=== PATIENT | male | born 1945 | race Caucasian/White ===

== ENCOUNTER 2020-03-03 13:15 | Outpatient (CLI) | payer MEDICARE, OTHER, SELFPAY ==
--- NOTE | 2020-03-03 13:38 | XR_ITS ---
WS: [id number] ABDOMEN 1 VIEW(S) HISTORY: GASTRITIS, ABDOMINAL PAIN, LUQ COMPARISON: None available. Moderate fecal retention and constipation. No obstruction. No suspicious calcifications or masses. 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 XR/XR abdomen 1V* [id number] IMPRESSION: Moderate constipation.
== END 2020-03-03 13:16 | disposition home or self-care (01) ==
LOC: RADWPI 13:19
PROVIDERS: Family Provider Electrodiagnostic Medicine; PCP Electrodiagnostic Medicine; Visit Provider Electrodiagnostic Medicine
DX: K29.70 Gastritis, unspecified, without bleeding (principal); R10.12 Left upper quadrant pain; K59.00 Constipation, unspecified
CPT/HCPCS: 74018

== ENCOUNTER 2020-03-07 11:07 | Outpatient (CLI) | payer MEDICARE, OTHER, SELFPAY ==
--- NOTE | 2020-03-07 11:12 | CT_ITS ---
WS: [id number] CT ABDOMEN PELVIS TECHNIQUE: Contrast-enhanced CT of the abdomen and pelvis with coronal and sagittal reformatted image s. CLINICAL INFORMATION: DIARRHEA, ABDOMINAL PAIN COMPARISON: None. DLP: 1083.[address] scans at [facility] use at least one of these dose optimization techniques: automat ed exposure control; mA and/or kV adjustment per patient size (includes targeted exams where dose is matched to clinical indication); or iterative reconstruction. FINDINGS: Mild diffuse fatty infiltration of the liver. Normal portal vein and splenic vein. Tiny cyst right he patic lobe. Normal GE junction. Normal spleen. Gallbladder appears contracted but otherwise unremarka ble in appearance. Lung bases are well aerated. Adrenal glands are normal. Normal renal parenchymal e nhancement. No hydronephrosis. Peripelvic renal cysts. Pancreas appears unremarkable. Normal caliber abdominal aorta. Mild aortic calcification. No periaort ic lymphadenopathy. No pelvic lymphadenopathy. No inguinal lymphadenopathy. Sigmoid diverticulosis. No evidence of acute diverticulitis. Scattered stool in the colon. No evidenc e of small or large bowel obstruction. Tiny fat-containing umbilical hernia. Heterogeneous enlarged prostate measuring 4.3 x 4.9 x 4.6 cm. Disc space narrowing worse L5-S1. CT/CT abdomen pelvis w con* [id number] IMPRESSION: 1. Mild diffuse fatty infiltration of the liver. 2. Bilateral peripelvic renal cysts. No hydronephrosis. Normal portal vein and splenic vein. 3. Enlarged heterogeneously enhancing prostate measuring 4.9 x 4.3 x 4.6 cm. R ecommend correlation PSA. 4. Small esophageal hiatal hernia. 5. Normal caliber abdominal aorta.
[2020-03-07] MEDS: iohexol 300 mg/mL 50 mL Btl PO (12:49)
[2020-03-07 13:00] LABS: Blood Urea Nitrogen 11 mg/dL (8-23)
[2020-03-07] MEDS: iohexol 300 mg/mL 100 mL Btl IV (13:10)
== END 2020-03-07 11:08 | disposition home or self-care (01) ==
LOC: RADWPI 11:12
PROVIDERS: Family Provider Electrodiagnostic Medicine; PCP Electrodiagnostic Medicine; Visit Provider Electrodiagnostic Medicine
DX: R19.7 Diarrhea, unspecified (principal); R10.9 Unspecified abdominal pain; K76.0 Fatty (change of) liver, not elsewhere classified; N28.1 Cyst of kidney, acquired; N40.0 Benign prostatic hyperplasia without lower urinary tract symptoms; K44.9 Diaphragmatic hernia without obstruction or gangrene
CPT/HCPCS: 74177; 82565; 84520; Q9967

== ENCOUNTER → 2020-06-05 13:03 | Outpatient (BNVA) | payer MEDICARE, OTHER, SELFPAY | PROVIDERS: Family Provider Electrodiagnostic Medicine; PCP Electrodiagnostic Medicine; Visit Provider Dermatology | DX: L57.0 Actinic keratosis (principal); L82.1 Other seborrheic keratosis | CPT/HCPCS: 17000; 17003; 99203 ==

== ENCOUNTER → 2020-07-02 11:21 | Outpatient (BNVA) | payer MEDICARE, OTHER, SELFPAY | PROVIDERS: Family Provider Electrodiagnostic Medicine; PCP Electrodiagnostic Medicine; Visit Provider Urology | DX: R31.9 Hematuria, unspecified (principal); N40.0 Benign prostatic hyperplasia without lower urinary tract symptoms | CPT/HCPCS: 81001 ==

== ENCOUNTER → 2020-07-03 08:00 | Outpatient (BNVA) | payer MEDICARE, OTHER, SELFPAY | PROVIDERS: Family Provider Electrodiagnostic Medicine; PCP Electrodiagnostic Medicine; Visit Provider Urology | DX: R31.9 Hematuria, unspecified (principal) | CPT/HCPCS: 88112 ==

== ENCOUNTER 2020-09-30 07:50 | Outpatient (CLI) | payer MEDICARE, OTHER, SELFPAY ==
--- NOTE | 2020-09-30 08:04 | CT_ITS ---
WS: [id number] CT NECK WITH CONTRAST HISTORY: CERVICAL LYMPHADENOPATHY, NECK MASS TECHNIQUE: Contiguous 5 mm axial images are performed through the neck with intravenous contrast. Sag ittal and coronal reformats are also submitted. All CT scans at [facility] use at least o ne of these dose optimization techniques: automated exposure control; mA and/or kV adjustment per pat ient size (includes targeted exams where dose is matched to clinical indication); or iterative recons truction. CONTRAST: CONTRAST: Omnipaque 300; 95 mL IV. DLP: 2547.43 mGycm COMPARISON: None available. Palpable nodule in the LEFT submandibular region is identified. At the palpable site there is an enla rged, mildly hyperemic level 1B lymph node with a maximum short axis diameter of 13 mm. Smaller lymph nodes which are subcentimeter level 1A and 1B on the RIGHT. Additional mildly rounded but subcentime ter 8 mm LEFT level 3 lymph node. There is mild asymmetry in the LEFT palatine tonsil with diffuse calcifications. This is asymmetric t o the RIGHT with more soft tissue thickening measuring 13 x 15 mm. Vocal cords and larynx are unremar kable. Thyroid gland and salivary glands are normally enhancing with no masses. Mild degenerative disc disease at C5-6 and C6-7. No osseous destruction. Visualized portions of the skull base demonstrate no abnormalities. Orbits and globes are within norm al limits. No soft tissue masses. Visualized paranasal sinuses and mastoid air cells are normal. Lung apices are clear. CT/CT neck w con* [id number] IMPRESSION: 1. Palpable area LEFT neck corresponds to an enlarged hyperemic and possible p athologic lymph node at level 1B measuring 13 mm in diameter. Additional subcen timeter level 1 lymph nodes and a LEFT level 3 lymph node. Level 3 lymph node i s subcentimeter but rounded and mildly hyperemic. These lymph nodes may be reac tive or pathologic. 2. Fullness in the LEFT palatine tonsil. Recommend direct visualization to exc lude neoplasm.
[2020-09-30 08:27] LABS: Blood Urea Nitrogen 11 mg/dL (8-23)
[2020-09-30] MEDS: iohexol 300 mg/mL 100 mL Btl IV (08:38)
== END 2020-09-30 07:51 | disposition home or self-care (01) ==
LOC: RADWPI 07:54
PROVIDERS: PCP Electrodiagnostic Medicine; Visit Provider Electrodiagnostic Medicine
DX: R22.1 Localized swelling, mass and lump, neck (principal)
CPT/HCPCS: 70491; 82565; 84520; Q9967

== ENCOUNTER → 2020-10-02 08:23 | Outpatient (BNVA) | payer MEDICARE, OTHER, SELFPAY | PROVIDERS: PCP Electrodiagnostic Medicine; Visit Provider Urology | DX: R79.89 Other specified abnormal findings of blood chemistry (principal); N32.9 Bladder disorder, unspecified; R31.9 Hematuria, unspecified | CPT/HCPCS: 81003; 84403 ==

== ENCOUNTER → 2020-10-07 08:39 | Outpatient (BNVA) | payer MEDICARE, OTHER, SELFPAY | PROVIDERS: PCP Electrodiagnostic Medicine; Visit Provider Urology | DX: R79.89 Other specified abnormal findings of blood chemistry (principal) | CPT/HCPCS: 84403 ==

== ENCOUNTER 2020-10-17 16:19 | Outpatient (CLI) | payer MEDICARE, OTHER, SELFPAY ==
[2020-10-17 16:57] LABS: Basophils # 0.1 10^3/uL (0.0-0.1); Eosinophils # 0.1 10^3/uL (0.0-0.8); Eosinophils % 1.1 %; Hematocrit 44.6 % (42.0-52.0); Hemoglobin 14.5 g/dL (11.7-16.6); Lymphocytes # 2.8 10^3/uL (0.8-4.8); Lymphocytes % 40.2 %; Mean Corpuscular HGB Conc 32.5 g/dL (30.0-36.0); Mean Corpuscular Hemoglobin 31.1 pg (28.0-34.0); Mean Corpuscular Volume 95.7 fL (80-94); Mean Platelet Volume 9.8 fL (7.4-10.4); Monocytes # 0.8 10^3/uL (0.2-0.9); Monocytes % 11.3 %; Neutrophils # 3.22 10^3/uL (1.8-7.7); Neutrophils % 45.7 %; Nucleated Red Blood Cells % 0 %; Platelet Count 286 10^3/cmm (130-400); Red Blood Count 4.66 10^6/uL (4.1-5.3); Red Cell Distribution Width 12.8 % (12.1-15.1); White Blood Count 7.1 10^3/uL (4.0-10.0)
[2020-10-17 17:17] LABS: Anion Gap 13.4 (5-19); Blood Urea Nitrogen 12 mg/dL (8-23); Calcium 9.5 mg/dL (8.5-10.5); Carbon Dioxide 28 mmol/L (22-29); Chloride 101 mmol/L (98-107); Glucose 91 mg/dL (65-115); Osmolality Calculated 285 mOsm/kg (285-295); Potassium 4.4 mmol/L (3.5-5.1); Sodium 138 mmol/L (136-145)
== END 2020-10-17 16:20 | disposition home or self-care (01) ==
PROVIDERS: PCP Electrodiagnostic Medicine; Visit Provider Specialist
DX: R22.1 Localized swelling, mass and lump, neck (principal)
CPT/HCPCS: 36415; 80048; 85025

== ENCOUNTER → 2020-10-22 00:01 | Outpatient (BNVA) | payer MEDICARE, OTHER, SELFPAY | PROVIDERS: PCP Electrodiagnostic Medicine; Visit Provider Specialist | DX: Z20.828 Contact with and (suspected) exposure to other viral communicable diseases (principal) | CPT/HCPCS: 87635 ==

== ENCOUNTER 2020-10-28 05:53 | Day surgery (SDC) | payer MEDICARE, OTHER, SELFPAY ==
--- NOTE | 2020-10-17 16:26 | ECG_ITS ---
[facility] Test Date: 2020-10-17 Pat Name: Segun Yuan Department: Room: Gender: Male Photographic Artist: : 1945 Requested By: Dinesh Guerrier Order Number: [id number] Michelle MD: Oscar Collazo M.D. Measurements Intervals [place] Rate: 48 P: 48 GA: 170 QRS: -10 QRSD: 164 T: 11 QT: 459 QTc: 411 Interpretive Statements SINUS BRADYCARDIA RIGHT BUNDLE BRANCH BLOCK [120+ ms QRS DURATION, UPRIGHT V1, 40+ ms S IN I/aVL/V4/V5/V6] INTERPRETATION BASED ON A DEFAULT AGE OF 40 YEARS No previous ECG available for comparison Electronically Signed On 10-17-2020 18:41:28 LINER CHECKER by Oscar Collazo M.D. [id number]
[2020-10-27 13:47] VITALS: BMI 25.0
[2020-10-28] VITALS (7 sets, daily range): BP systolic 138–176; BP diastolic 84–97; PULSE 63–114; RESP 14–18; TEMP 36.1–36.8; O2SAT 92–99
[2020-10-28] MEDS: sodium chloride 0.9% 1,000 ML 30 ML IV (06:30)
--- NOTE | 2020-10-28 06:54 | W.PM.OPSUD ---
Surgery/Procedure H&P Update DATE OF PROCEDURE: October 28, 2020 DATE H&P PERFORMED: 10/17/20 H&P UPDATE INFORMATION: I have reviewed H&P completed within last 30 days, I have examined patient prior to procedure and No changes to prior documentation PREOP DIAGNOSIS: Left neck mass, left tonsil mass PRIMARY INDICATION FOR PROCEDURE: Left neck and tonsil mass PLANNED PROCEDURE: Operation Date: 10/28/20 07:00 Proposed Procedures p Tonsillectomy 34205 R22.1(Left) - Dinesh Andrews MD s Jenn Procedure 48355 R922.1(Left) - Dinesh Andrews MD s Direct Laryngoscopy with biopsy 02705 R22.1(Left) - Dinesh Andrews MD s Excisional biopsy of left neck mass R22.1 26619(Left) - Dinesh Andrews MD
--- NOTE | 2020-10-28 07:02 | ANES.PREANE2 ---
Pre-Anesthetic Assessment Pre-Anesthetic Assessment: Height/Weight: Height 1.68 m Weight 70.307 kg Temp Pulse Resp BP Pulse Ox 98.2 F 63 18 138/84 96 10/28/20 06:10 10/28/20 06:10 10/28/20 06:10 10/28/20 06:10 10/28/20 06:10 Preop Diagnosis: Left neck mass, left tonsil mass Proposed Procedure: Operation Date: 10/28/20 07:00 Proposed Procedures p Tonsillectomy 68086 R22.1(Left) - Dinesh Andrews MD s Jenn Procedure 27713 R922.1(Left) - Dinesh Andrews MD s Direct Laryngoscopy with biopsy 93460 R22.1(Left) - Dinesh Andrews MD s Excisional biopsy of left neck mass R22.1 39483(Left) - Dinesh Andrews MD Was Beta Barb taken within 24 hours: N/A Last intake: Intake Last Liquid Date 10/27/20 Last Liquid Time 20:00 Last Solid Date 10/27/20 Last Solid Time 20:00 Social: Social History: No alcohol and No tobacco Exam: Pre-Anes Outpt Exam: alert, oriented x 3, clear to auscultation bilaterally and regular rate & rhythm Airway: Submandibular: WNL Cervical ROM: WNL MP: 2 Dentition: Full Pulmonary: Pulmonary: None reported CV/HEM: CV/HEM: None reported : Comments: BPH Hepatic: Hepatic: None reported GI: GI: None reported Metabolic: Metabolic: Thyroid Musc/skel: Musc/skel: None reported Neuropsych: Neuropsych: None reported Anesthetic Plan: ASA status: 2 Anesthesia: General Risk of > 500 ml blood loss (7ml/kg in children): No Meds/Allergies Current Medications: Current Medications Generic Name Dose Route Start Last Admin Trade Name Freq PRN Reason Stop Dose Admin Sodium Chloride 1,000 mls @ 30 ml s/hr 10/28/20 06:00 10/28/20 06:30 Sodium Chloride 0.9% IV 10/29/20 05:59 30 mls/hr .Q24H SAUD Administration PFSH Anesthesia PFSH: Medical History Hematuria Hyperlipidemia Hypogonadism Hypothyroidism Surgical History History of cataract surgery History of right knee surgery Family History Brother Cancer CAD (coronary artery disease) Father , AT AGE 54 CAD (coronary artery disease) Myocardial infarction (lateral wall) Mother , AT AGE 88 No problems noted. Social History Smoking and tobacco status: never smoked Alcohol intake: current Alcohol intake frequency: few times a month Adopted: No Caregiver/support person: No Lives independently: No Household members: spouse Marital status: Data Anesthesia Cardiac Studies: No Data to Display
[2020-10-28] MEDS: ceFAZolin 1,000 mg SDV 1000 MG IRRIGATION (08:01)
[2020-10-28] MEDS: neomycin-poly-bacitracin oint 28 gm 1 APPLIC TOPICAL (08:24)
[2020-10-28] MEDS: silver nitrate applicator 1 EACH (08:55)
--- NOTE | 2020-10-28 09:37 | P.PCN_ITS ---
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
--- NOTE | 2020-10-28 09:37 | PM.OP ---
Operative Report Date of procedure: October 28, 2020 Pre-op Diagnosis: Left neck mass, left tonsil mass Post-op diagnosis: same Post-op Findings: Left hyoid area neck mass Hard left tonsil with microabscesses present Normal laryngal exam O/W normal oral pharyngeal exam Procedure Done: Bilateral tonsillectomy Direct laryngoscopy Excisional biopsy of left, hyoid area neck mass Implants: None Specimens removed/disposition: Bilateral tonsils Left hyoid area neck mass Pathology: Bilateral tonsils Left hyoid area neck mass Surgeon: Dinesh Andrews Pattern And Chain Maker: Pradeep Harvey Anesthesia: General Estimated blood loss (mL): 25 IV fluids (mL): 1,200 Complications: None Findings: Hard left tonsil with multiple intratonsillar microabscesses Left hyoid area solid neck mass - 2 cm Condition: stable Disposition: PACU Brief History: 75 yo wm with a h/o a left anterior neck mass and question of a left tonsil mass who presents for surgical evaluation and biopsy. Procedure: The patient was identified in the preoperative holding area and was taken to the operating room where he was placed on the operating table in the supine position. Anesthesia was obtained with general endotracheal anesthesia and the table was turned 90 degrees to the patient's left. The Nirvana nerve monitoring system was placed on the patient and an incision was marked out in a convenient skin crease just below the left hyoid area neck mass. The left anterior neck incision was injected local anesthesia and the patient was then prepped and draped in the usual sterile fashion. The left neck incision was made with a 15 blade and dissection was carried down through the platysma with electrocautery. Once a subplatysmal plane had been reached a subplatysmal dissection was pursued superiorly with the Nirvana nerve monitoring hemostat. The marginal mandibular nerve was identified and preserved in place. The mass was identified visually and was dissected free from the surrounding tissue using the Nirvana hemostat and the microbipolar forceps. Once the mass had been excised hemostasis was achieved with bipolar cautery. Hao was placed in the wound and the wound was then closed with interrupted 4 Monocryl sutures subcu and running 5-0 Prolene on the skin. The wound was then cleaned and covered with triple antibiotic ointment. At this point the McIvor mouthgag was placed atraumatically in the patient's oral cavity and he was suspended in the Claudine position. An inspection was carried out the patient oral cavity with findings noted above. The left tonsil was palpated and then grasped with the Allis clamp and was retracted medially. Electrocautery was used to make a mucosal incision along the anterior border of the left tonsil and the left tonsil was then dissected free from the tonsillar fossa as an extracapsular tonsillectomy. Hemostasis was achieved with bipolar cautery and silver nitrate. Attention was then turned to the right tonsil where a similar procedure was performed. At this point the patient was taken off suspension and a Silastic tooth guard was placed on the patient's maxillary teeth. The surgical laryngoscope was then advanced down the right oral cavity gutter under direct vision until the larynx came into view. An inspection was then carried out of the patient's larynx with findings as noted above. Once this was accomplished the patient was taken off suspension. The instrumentation was removed from the patient and control of the patient was returned to anesthesia where he underwent an uneventful reversal of anesthesia and extubation and was taken to the recovery room in stable condition. There were no operative or anesthetic complications.
--- NOTE | 2020-10-28 09:37 | PM.PACU ---
PACU note PACU note: VSS, Good respiratory effort, report to TRACTOR DISTRIBUTOR Post-Anesthesia Exam: awake
--- NOTE | 2020-10-28 10:06 | ANE.PACU2 ---
Inpatient post-anesthesia follow up: Airway intact: Yes Vital signs: Temperature 97.0 F Pulse Rate 114 Respiratory Rate 16 Blood Pressure 152/88 Pulse Oximetry 92 Oxygen Delivery Me thod Room Air Oxygen Flow Rate 8 Fraction of Inspir ed Oxygen Hydration adequate: Yes Nausea and vomiting: No Pain level: 2 Mental status: Baseline
--- NOTE | 2020-10-28 12:20 | P.PTHFZ_ITS ---
Frozen Section Notes Specimen(s): Left neck mass Gross: The specimen was received for frozen section diagnoses labeled with the patient's name and MRN number and additionally labeled, left neck mass and consists of a 1.5 x 1 x 0.5 cm soft tissue nodule. The specimen is trisected. One third of the specimen is saved in RPMI and sent for flow cytometry as per Dr. Brumfield's instructions. On additional consult, a section was submitted and for frozen section diagnoses and the remaining tissue was saved for permanent sect ions. Preliminary Impression: Neck, left, mass, frozen section diagnoses (FS 1): ?Lymphoid tissue with partial effacement. ?Sent for lymphoma work-up. - Specimen Information Pathologist: Angie Guallpa Date: 10/28/20 Specimen reported at what time: 08:40 - Clinician Specimen collection time: 08:11 Clinician reported to: Dinesh Andrews
[2020-10-30 09:08] LABS: Miscellaneous Test See Scanned Lab Rpt
== END 2020-10-28 11:10 | disposition home or self-care (01) ==
PROVIDERS: PCP Electrodiagnostic Medicine; Visit Provider Specialist
PROC: (CPT 11422; principal; 2020-10-28 07:00)
PROC: 0CJS8ZZ Inspection of Larynx, Via Natural or Artificial Opening Endoscopic (ICD-10-PCS; CPT 11422; 2020-10-28 07:00)
PROC: (CPT 11422; 2020-10-28 07:00)
DX: R22.1 Localized swelling, mass and lump, neck (principal); J35.8 Other chronic diseases of tonsils and adenoids; N40.0 Benign prostatic hyperplasia without lower urinary tract symptoms; E78.5 Hyperlipidemia, unspecified; E03.9 Hypothyroidism, unspecified
CPT/HCPCS: 11422; 12041; 31525; 42826; 12345; 88304; 88305; 93005; J0330; J0690; J1100; J2405; J2704; J2710; J3010; J3490; J7030

== ENCOUNTER → 2021-02-18 08:54 | Outpatient (BNVA) | payer MEDICARE, OTHER, SELFPAY | PROVIDERS: PCP Electrodiagnostic Medicine; Visit Provider Urology | DX: R79.89 Other specified abnormal findings of blood chemistry (principal); R31.9 Hematuria, unspecified; N32.9 Bladder disorder, unspecified | CPT/HCPCS: 81003; 84403 ==

== ENCOUNTER → 2021-03-16 13:16 | Outpatient (BNVA) | payer MEDICARE, OTHER, SELFPAY | PROVIDERS: PCP Electrodiagnostic Medicine; Visit Provider Nurse Practitioner Family | DX: R31.9 Hematuria, unspecified (principal); N32.9 Bladder disorder, unspecified; Z20.822 Contact with and (suspected) exposure to COVID-19 | CPT/HCPCS: 81003; 87635 ==

== ENCOUNTER 2021-03-23 14:28 | Observation (INO) | payer MEDICARE, OTHER, SELFPAY ==
[2021-03-23] VITALS (10 sets, daily range): BP systolic 118–167; BP diastolic 76–98; PULSE 62–91; RESP 12–19; TEMP 36.2–37; O2SAT 90–99; BMI 26.6
[2021-03-23] MEDS: sodium chloride 0.9% 1,000 ML 30 ML IV ×2 (12:53→15:46)
--- NOTE | 2021-03-23 12:55 | ANES.PREANE2 ---
Pre-Anesthetic Assessment Pre-Anesthetic Assessment: Height/Weight: Height 1.68 m Weight 74.843 kg Temp Pulse Resp BP Pulse Ox 98.3 F 62 18 137/84 96 03/23/21 12:46 03/23/21 12:46 03/23/21 12:46 03/23/21 12:46 03/23/21 12:46 Preop Diagnosis: Suspicious mucosa in the bladder/prostate Proposed Procedure: Operation Date: 03/23/21 13:25 Proposed Procedures p Cystoscopy 16715 N32.9(Not Applicable) - Juan Luis Rivera MD s Transurethral Resection Bladder Tumor(Not Applicable) - Juan Luis Rivera MD Familial anesthetic complications: PONV with knee scope, did fine with tonsillectomy Was Beta Barb taken within 24 hours: N/A Was Clonidine taken within 24 hours: N/A Last intake: Intake > 8 hrs Last Liquid Date 03/22/21 Last Solid Date 03/22/21 Social: Social History: No alcohol and No tobacco Exam: Pre-Anes Outpt Exam: alert, oriented x 3, clear to auscultation bilaterally and regular rate & rhythm Airway: Cervical ROM: WNL MP: 2 Dentition: Full GI: GI: GERD Metabolic: Metabolic: Hyperlipidemia and Thyroid Anesthetic Plan: ASA status: 2 Anesthesia: General Risk of > 500 ml blood loss (7ml/kg in children): No Meds/Allergies Current Medications: Current Medications Generic Name Dose Route Start Last Admin Trade Name Freq PRN Reason Stop Dose Admin Sodium Chloride 1,000 mls @ 30 ml s/hr 03/23/21 12:30 03/23/21 12:53 Sodium Chloride 0.9% IV 03/24/21 12:29 30 mls/hr .Q24H SAUD Administration PFSH Anesthesia PFSH: Medical History Hematuria Hyperlipidemia Hypogonadism Hypothyroidism Surgical History History of cataract surgery History of right knee surgery Family History Brother Cancer CAD (coronary artery disease) Father , AT AGE 54 CAD (coronary artery disease) Myocardial infarction (lateral wall) Mother , AT AGE 88 No problems noted. Social History Smoking and tobacco status: never smoked Alcohol intake: current Alcohol intake frequency: few times a month Adopted: No Caregiver/support person: No Lives independently: No Household members: spouse Marital status: Data Anesthesia Cardiac Studies: No Data to Display
--- NOTE | 2021-03-23 13:10 | P.HP_ITS ---
Providers/Chief Complaint Primary Care Provider: Winston Kelley DO Chief Complaint: cystoscopy History of Present Illness Segun Yuan is a 75 year old male originally evaluated for gross hematuria and increasing lower urinary tract symptoms. Upper urinary tracts were normal showing only parapelvic cyst findings. Cystoscopy revealed fairly diffuse papillary changes more likely benign within the prostatic lumen. No distinct lesion just more of a diffuse papillary type change. Cytology was negative. It was elected at that time to repeat cystoscopy in several months and these changes persisted. Ultimately on repeat cystoscopy in January it was decided to proceed with biopsy/transurethral resection. Review of Systems Const: Denies: fever(s) or chills Eyes: Denies: change in vision ENMT: Denies: odynophagia Card: Denies: chest pain Resp: Denies: dyspnea or productive cough GI: Denies: abdominal pain or constipation : Denies: urinary frequency or urinary urgency Musc: Denies: extremity swelling or joint warmth Skin/Breast: Denies: changes in skin color or jaundice Neuro: Denies: confusion, Slurred speech present or seizure-like activity Psych: Denies: anxiety or depression Endo: Denies: flushing Hay/Lymph: Denies: easy bruising or easy bleeding All/Imm: Denies: urticaria or acute wheezing Medications/Allergies Home Medications Medication Instructions Recorded Confirmed Last Taken Type levothyroxine 75 mcg capsule 75 mcg PO DAILY 06/05/20 03/20/21 10/27/20 History lovastatin 20 mg tablet 20 mg PO DAILY 06/05/20 03/20/21 10/27/20 History ascorbic acid (vitamin C) 500 mg 500 mg PO DAILY cap 07/02/20 03/20/21 10/27/20 History capsule multivitamin 1 cap PO DAILY 07/02/20 03/20/21 10/27/20 History omega-3 fatty acids 1,000 mg 1,000 mg PO BID 07/02/20 03/20/21 10/27/20 History capsule saw palmetto 500 mg capsule 500 mg PO DAILY cap 07/02/20 03/20/21 10/27/20 History zinc 50 mg tablet 50 mg PO DAILY 07/02/20 03/20/21 10/27/20 History tamsulosin [Flomax] 0.4 mg PO DAILY 10/27/20 03/20/21 10/27/20 History cholecalciferol (vitamin D3) 50 mcg PO DAILY 10/28/20 03/20/21 10/27/20 History [Vitamin D3] omeprazole 40 mg PO DAILY PRN 10/28/20 03/20/21 10/25/20 History testosterone cypionate 200 mg IM .Q 3WKS 10/28/20 03/20/21 10/21/20 History [Depo-Testosterone] aspirin 81 mg tablet,delayed 81 mg PO DAILY 02/18/21 03/20/21 Unknown History release Allergies Allergy/AdvReac Type Severity Reaction Status Date / Time prednisone Allergy headache Verified 03/20/21 12:16 PFSH Acute PFSH: Medical History (Updated 03/23/21 @ 13:16 by Juan Luis Rivera MD) Hematuria Hyperlipidemia Hypogonadism Hypothyroidism Surgical History History of cataract surgery History of right knee surgery Family History Brother Cancer CAD (coronary artery disease) Father , AT AGE 54 CAD (coronary artery disease) Myocardial infarction (lateral wall) Mother , AT AGE 88 No problems noted. Social History Smoking and tobacco status: never smoked Alcohol intake: current Alcohol intake frequency: few times a month Adopted: No Caregiver/support person: No Lives independently: No Household members: spouse Marital status: Vitals/I&O/Wt Last Vital Signs Temp 98.3 F 03/23/21 12:46 Pulse 62 03/23/21 12:46 Resp 18 03/23/21 12:46 BP 137/84 03/23/21 12:46 Pulse Ox 96 03/23/21 12:46 Weight last 48 hrs Weight 165 lb Physical Exam Const: COMMON NORMALS: no acute distress, alert and well nourished GENERAL APPEARANCE: well kempt and well developed ORIENTATION/CONSCIOUSNESS: not confused HENMT: HEAD & SCALP: normocephalic and atraumatic Eye: COMMON NORMALS: conjunctivae normal and no scleral icterus Neck/C-Spine: COMMON NORMALS: full ROM Lymph: LYMPHATIC: no lymphadenopathy noted Resp: COMMON NORMALS: normal respiratory effort EFFORT & INSPECTION: No labored and No Actively coughing GI: PALPATION: Yes Soft to palpation and No Tenderness to palpation present (GI) : MALE GROIN/PERINEUM EXAM: No ecchymosis PENIS: normal penis MEATUS: meatus normal, no meatla discharge and No Blood at meatus present SCROTUM: Yes testes descended bilaterally, No edematous and No scrotal swelling Extremity: NARRATIVE EXTREMITY EXAM: Good range of motion Neuro: COMMON NORMALS: no focal motor deficits SENSORIUM/ORIENTATION: Yes alert Psych: COMMON NORMALS: mental status grossly normal APPEARANCE: Yes grossly normal and Yes well kempt ATTITUDE: Yes calm and Yes engaged Skin: COMMON NORMALS: no jaundice GENERAL SKIN EXAM: no rashes or lesions noted A&P Assessment and plan (1) Lesion of bladder: Atypical but mostly benign appearing fairly diffuse papillary changes in the bladder neck/prostatic lumen. Normal bladder otherwise. Persisted over time. Cytology negative. Recommended biopsy/resection. Status: Acute (2) Hematuria: Status: Acute Qualifiers: Hematuria type: gross Qualified Code(s): R31.0 - Gross hematuria Attestations Medical Necessity Statement*: Admitted with suspicious mucosa lining the prostatic lumen and onto the bladder neck. Expect that this will be benign but cannot rule that out by visualization cystoscopically. Admitted for transurethral resection/biopsy of this area. Will not likely require hospitalization to cross 2 midnights. Coding Level of Care Code Acute Media Consultant for [facility] Diagnoses Lesion of bladder N32.9 Hematuria R31.0 Hematuria type: gross
[2021-03-23] MEDS: lidocaine 2% Urojet 20 mL TOPICAL (14:10)
--- NOTE | 2021-03-23 14:28 | P.OP_ITS ---
Operative Report Date of procedure: March 23, 2021 Pre-op Diagnosis: Suspicious mucosa in the bladder neck/prostate Post-op diagnosis: same Post-op Diagnosis: 1. Suspicious mucosa primarily prostatic lumen 2. Chronic bladder outlet obstructive symptoms secondary to BPH Procedure Done: 1. Transurethral resection/vaporization of prostate Pathology: Abnormal mucosa of prostatic lumen, multiple sites. Surgeon: Nicole Anesthesia: General Estimated blood loss: Minimal Urine output: Not measured Complications: None Findings: Trilobar involvement of abnormal mucosa on the lateral and medial lobe. Prostate is moderately enlarged. Moderate trabeculation of the bladder. No bladder mucosal abnormalities of concern. Suspicious mucosa resected including deeper sections and prostatic lumen opened with vaporization technique to avoid bladder neck contraction from multiple areas of resection. Wide open at the completion of the procedure Condition: stable Disposition: PACU Brief History: Segun is a very pleasant 75-year-old white male who originally was evaluated for gross hematuria and found to have abnormal appearing mucosa of the prostatic lumen that was felt to be likely benign. Cytology was negative and he was placed on a close surveillance cystoscopy program. To further subsequent cystoscopies revealed persistence of this abnormality and ultimately was rec ommended to proceed with transurethral resection/biopsy. The bladder itself was clear. There was some involvement of the bladder neck though. Procedure: After routine preoperative evaluation examination and obtaining of informed consent he was taken to the operating suite on 03/23/2021 where general anesthesia was administered without difficulty after appropriate timeout was performed, SCDs confirmed to be functioning, preoperative antibiotics administered, beta-audelia protocol confirmed. Prepped and draped in the usual sterile fashion in dorsolithotomy position paying careful attention to avoiding pressure points. 21 [place] cystoscope with 30 degree lens was introduced into the urethral meatus and advanced into the bladder under videoscopy. The bladder was systematically examined. There was moderate trabeculation but no mucosal abnormalities. The orifices were confirmed to be well away from the bladder neck. The prostatic lumen demonstrated the findings seen in clinic. It was trilobar involvement of the mucosa with both lateral lobes and posterior/median lobe. Konstantin sounds were utilized then to calibrate and dilate the urethra and easily accommodated 30 [place]. 2% lidocaine jelly was instilled into the urethra and a 25 [place] continuous- flow resectoscope sheath with visual obturator in place was advanced into the bladder without difficulty. The gyrus bipolar system was utilized for resection utilizing the super loop for resection of the abnormal mucosa and deeper sectioning of the prostatic tissue. Inspection revealed hemostasis but it was concerning that based on the appearance that he would likely be at increased risk for bladder neck contracture and for that reason the button probe was utilized for vaporization of the 6 o'clock position in the lateral lobes to a degree to allow a wide opening of the prostatic lumen and bladder neck. 3:00 and 9:00 trough was also made for further springing open of the bladder neck to avoid bladder neck contracture. All chips were evacuated from the bladder. The total amount of tissue resected was small relative to the vaporized volume. After confirmation of hemostasis and no further chips in the bladder the catheter was placed (20 [place] three-way 30 cc balloon). Light CBI was initiated. Catheter drainage remained clear. Tolerated the procedure well without complications and was awakened in the operating room and returned to the cart room in stable condition. PLANS: 1. Maintain observation status overnight. Voiding trial in the morning most likely 2. Follow-up to be arranged pending pathology report.
--- NOTE | 2021-03-23 14:33 | P.PCN_ITS ---
PACU note PACU note: VSS, Good respiratory effort, report to [employer]ER [employer]UNNEL KILN Post-Anesthesia Exam: awake
--- NOTE | 2021-03-23 14:33 | PM.PACU ---
PACU note PACU note: VSS, Good respiratory effort, report to TOOTH CUTTER CONTACT WHEEL Post-Anesthesia Exam: awake
--- NOTE | 2021-03-23 17:44 | ANE.PACU2 ---
Inpatient post-anesthesia follow up: Airway intact: Yes Vital signs: Temperature 97.8 F Pulse Rate 62 Respiratory Rate 17 Blood Pressure 156/85 Pulse Oximetry 90 Oxygen Delivery Me thod Room Air Oxygen Flow Rate 6 Fraction of Inspir ed Oxygen Hydration adequate: Yes Nausea and vomiting: No Pain level: 1 Mental status: Baseline
[2021-03-23] MEDS: ceFAZolin 1,000 MG in sodium chloride 0.9% (plus) 50 ML 100 MG IV (20:41)
[2021-03-23 22:20] LABS: Glucose Point of Care 99 mg/dL (70-110)
[2021-03-23] MEDS: zolpidem 5 mg Tablet PO (22:22)
[2021-03-24 04:57] VITALS: BP 127/76; PULSE 69; RESP 18; TEMP 37; O2SAT 93
[2021-03-24] MEDS: ceFAZolin 1,000 MG in sodium chloride 0.9% (plus) 50 ML 100 MG IV (05:34)
[2021-03-24 07:21] VITALS: PULSE 62
[2021-03-24 07:58] VITALS: PULSE 65; O2SAT 92
[2021-03-24 08:06] VITALS: BP 138/77; PULSE 63; RESP 18; TEMP 36.7; O2SAT 94
[2021-03-24] MEDS: levothyroxine 75 mcg Tablet PO (08:49)
--- NOTE | 2021-03-24 10:33 | PC.CHAP ---
Pastoral Care Encounter/Spiritual Assessment Type of Contact [] Declined textile worker visit [] Patient/Family/Request visit [] Outpatient visit [] Follow-up visit [] Physician referral [] Code/Alert [x] Routine visit [] Staff referral [] Actively dying [] Patient sleeping [] Family support [] [] Out of room [] Palliative care [] [] Receiving care in room [] Pre-surgical visit [] Trauma [] Long length of stay [] ICU visit [] Other: Relational/Emotional Strength [x] Patient feels connected with others/family/visitors/staff [] Distress [] Loneliness/isolation [] Abandonment Spirituality of Patient [] Person of Marcela [] Attends Gnosticism of their Marcela [] Believes in Prayer [] Reads Bible or Uatsdin materials [] There are Spiritual issues to be addressed Piano Professor Interventions [] Prayer [] Active listening [] Non-anxious presence [] Spiritual/emotional support [] Crisis/trauma care [] Spiritual counseling [] Bereavement support [] Provided bereavement packet [] Provided Bible/devotional materials [] Provided toy/stuffed animal, coloring book to patient or family member [] Provided Communion [] Anointing/[place] [] Salvation [x] Completed spiritual assessment [] Other: Impact on Illness or Injury [] Angry [] Fearful [] Anxious [] Often cries [] Exhaustion [] Unable to work [] Unable to attend church [] Unable to walk/stand [] Unable to read [] Unable to drive [] Unable to eat/drink [] Unable to sleep [] Unable to be with family [] Patient intubated [] Other: Summary patient refused prayeer Time spent with patient 10 min
[2021-03-24 11:52] VITALS: BP 144/85; PULSE 58; RESP 18; TEMP 36.5; O2SAT 97
--- NOTE | 2021-03-24 12:36 | PM.DCS ---
Discharge Providers Date of Admission: 03/23/21 14:28 Date of Discharge: March 24, 2021 Attending Provider at Admission: Juan Luis Rivera MD Attending Provider at Discharge: Juan Luis Rivera MD Primary Care Provider: Winston Kelley DO Diagnoses at Discharge Discharge Diagnosis (1) Lesion of bladder: Status: Acute (2) Hematuria: Status: Acute Qualifiers: Hematuria type: gross Qualified Code(s): R31.0 - Gross hematuria (3) BPH loc w urin obs/LUTS: Status: Acute Reason for Visit Reason for Visit: Suspicious bladder prostatic lumen mucosa Hospital Course Hospital Course He was admitted on the day of the procedure 03/23/2021 for transurethral biopsy of suspicious prostatic lumen mucosa. Multiple areas were resected. In order to avoid bladder neck contracture from partial resection of the prostate, transurethral vaporization of the prostate/resection of the prostate was performed adequately enough to open the lumen to reduce the risk of bladder neck contracture. He had been on chronic TAMSULOSIN and SAW palmetto. Hopefully he will be able to stop these after this required procedure. On postoperative day #1 he voided spontaneously after catheter removal with good emptying, improved flow, and clear urine. Discharged on the evening of postoperative day #1 in stable condition. Follow-up plans will be for phone call early next week for pathology report check follow-up in about 2 to 3 weeks for flow rate PVR AUA symptom score. Encouraged him to call if he has any difficulty prior to that time. The hospital after he can reach me after hours Physical Exam Const: COMMON NORMALS: no acute distress, alert and well nourished GENERAL APPEARANCE: well kempt and well developed ORIENTATION/CONSCIOUSNESS: not confused Neck/C-Spine: COMMON NORMALS: full ROM Resp: COMMON NORMALS: normal respiratory effort EFFORT & INSPECTION: No labored and No Actively coughing GI: COMMON NORMALS: Soft to palpation and non-tender PALPATION: Yes Soft to palpation : BLADDER/KIDNEY EXAM: Yes bladder normal to palpation Neuro: COMMON NORMALS: no focal motor deficits SENSORIUM/ORIENTATION: Yes alert Psych: COMMON NORMALS: mental status grossly normal APPEARANCE: Yes grossly normal and Yes well kempt ATTITUDE: Yes calm and Yes engaged Skin: COMMON NORMALS: no rashes or lesions noted and no jaundice GENERAL SKIN EXAM: no rashes or lesions noted Urinary Catheter Management^: 3-way Urethral CBI: Cath Placed During This Visit: yes, but has since been removed by the nurse Reason for Continuing Indwelling Catheter: Decision to DC Catheter Urinary Catheter Date of Insertion: 03/23/21 Urinary Catheter Time of Insertion: 14:15 Date Urinary Catheter Removed: 03/24/21 Time Urinary Catheter Discontinued: 08:19 Discharge Data Data Completed and Pending: Pending at discharge Category Date Time Status Pathology: Surgic al [PTH] Routine Pth 03/23/21 14:33 Received Labs from last 24 hours 03/23/21 21:40 POC Glucose 99 Vitals: Last Vital Signs Temp 97.7 F 03/24/21 11:52 Pulse 58 L 03/24/21 11:52 Resp 18 03/24/21 11:52 BP 144/85 03/24/21 11:52 Pulse Ox 97 03/24/21 11:52 Discharge Plan Discharge Patient Disposition: Home Condition: Stable Prescriptions: Continued lovastatin 20 mg tablet 20 mg PO DAILY RF: 0 levothyroxine 75 mcg capsule 75 mcg PO DAILY RF: 0 saw palmetto 500 mg capsule 500 mg PO DAILY RF: 0 multivitamin Capsule 1 cap PO DAILY RF: 0 ascorbic acid (vitamin C) 500 mg capsule 500 mg PO DAILY RF: 0 zinc 50 mg tablet 50 mg PO DAILY RF: 0 tamsulosin [Flomax] 0.4 mg Capsule 0.4 mg PO DAILY RF: 0 omeprazole 40 mg capsule,delayed release(DR/EC) 40 mg PO DAILY PRN (Reason: Acid Reflux) RF: 0 cholecalciferol (vitamin D3) [Vitamin D3] 50 mcg (2,000 unit) Capsule 50 mcg PO DAILY RF: 0 testosterone cypionate [Depo-Testosterone] 200 mg/mL oil 200 mg IM .Q 3WKS RF: 0 Held aspirin 81 mg tablet,delayed release (DR/EC) 81 mg PO DAILY RF: 0 Hold Instructions: Resume on 04/07/21. omega-3 fatty acids [Fish Oil Concentrate] 1,000 mg capsule 1,000 mg PO BID RF: 0 Hold Instructions: Resume on 04/07/21. Discharge Orders: Discharge Order (Routine); Ordered 03/24/21 Ordered By: Juan Luis Rivera Referrals: Juan Luis Rivera MD [Physician] - 04/14/21 (Approximately 3 weeks. Flow rate, PVR, AUA symptom score. ) Discharge Diet: Usual diet Discharge Activity: Limit activity as instructed Patient Instructions: Cystoscopy (DC), Transurethral Resection of Bladder Tumors (GEN), Opioid Safety Activity Restrictions/Additional Instructions: 1. Avoid lifting >10 pounds for at least 3 weeks. 2. Can increase fluid intake if urine becomes bloody. 3. Call early next week for pathology report if you have not heard from my office. 4. The hospital welding machine operator electroslag can reach me after hours if you have any concerns or questions. Discharge Attestations Time Spent in Discharge Care*: less than 30 min Quality Metrics Clinical Quality Measures During this hospital stay, did patient experience: None Coding Level of Care Code Acute Chg FW DC note Diagnoses Lesion of bladder N32.9 Hematuria R31.0 Hematuria type: gross BPH loc w urin obs/LUTS N40.1
--- NOTE | 2021-03-24 13:21 | PC.NURSE ---
patient and given discharge instructions and both verbalized understanding of instructions. patient's iv removed, iv catheter intact. patient walked to private vehicle by bid writer.
[2021-03-24 13:23] VITALS: BP 144/85; PULSE 58; RESP 18; TEMP 36.5; O2SAT 97
== END 2021-03-24 13:24 | disposition home or self-care (01) ==
LOC: MEDSURG 14:29
PROVIDERS: Admitting Provider Urology; PCP Electrodiagnostic Medicine; Visit Provider Urology
PROC: 0TJB8ZZ Inspection of Bladder, Via Natural or Artificial Opening Endoscopic (ICD-10-PCS; CPT 52000; principal; 2021-03-23 13:15)
PROC: 0TBB8ZZ Excision of Bladder, Via Natural or Artificial Opening Endoscopic (ICD-10-PCS; CPT 52601; 2021-03-23 13:15)
DX: N32.9 Bladder disorder, unspecified (principal); R31.0 Gross hematuria; N40.1 Benign prostatic hyperplasia with lower urinary tract symptoms; N13.8 Other obstructive and reflux uropathy; E78.5 Hyperlipidemia, unspecified; E03.9 Hypothyroidism, unspecified
CPT/HCPCS: 52601; 36416; 51798; 82962; 88305; G0378; J0690; J2405; J2704; J2710; J3010; J3490; J7030

== ENCOUNTER → 2021-04-14 11:13 | Outpatient (BNVA) | payer MEDICARE, OTHER, SELFPAY | PROVIDERS: PCP Electrodiagnostic Medicine; Visit Provider Urology | DX: N40.1 Benign prostatic hyperplasia with lower urinary tract symptoms (principal) | CPT/HCPCS: 81003 ==

== ENCOUNTER → 2021-10-14 07:55 | Outpatient (BNVA) | payer MEDICARE, OTHER, SELFPAY | PROVIDERS: PCP Electrodiagnostic Medicine; Visit Provider Urology | DX: N40.1 Benign prostatic hyperplasia with lower urinary tract symptoms (principal) | CPT/HCPCS: 81003 ==

== ENCOUNTER → 2022-01-04 07:49 | Outpatient (BNVA) | payer MEDICARE, OTHER, SELFPAY | PROVIDERS: PCP Electrodiagnostic Medicine; Visit Provider Nurse Practitioner Family | DX: E29.1 Testicular hypofunction (principal) | CPT/HCPCS: 84403 ==

== ENCOUNTER 2022-04-06 07:07 | Outpatient (CLI) | payer MEDICARE, OTHER, SELFPAY ==
[2022-04-06 08:06] LABS: Prostate Specific Antigen Scr 1.13 ng/mL (0-4)
== END 2022-04-06 07:08 | disposition home or self-care (01) ==
LOC: LAB 07:10
PROVIDERS: PCP Electrodiagnostic Medicine; Visit Provider Urology
DX: Z12.5 Encounter for screening for malignant neoplasm of prostate (principal); N40.1 Benign prostatic hyperplasia with lower urinary tract symptoms; R79.89 Other specified abnormal findings of blood chemistry
CPT/HCPCS: 36415; 51741; 51798; 81003; 84403; 99213; G0103

== ENCOUNTER → 2022-04-29 15:15 | Outpatient (BNVA) | payer MEDICARE, OTHER, SELFPAY | PROVIDERS: PCP Electrodiagnostic Medicine; Visit Provider Nurse Practitioner Family | DX: R31.9 Hematuria, unspecified (principal) | CPT/HCPCS: 81003 ==

== ENCOUNTER 2022-07-01 07:34 | Outpatient (CLI) | payer MEDICARE, OTHER, SELFPAY ==
[2022-07-01 08:35] LABS: Testosterone Total - Urology 96 ng/mL (300-1000)
== END 2022-07-01 07:35 | disposition home or self-care (01) ==
LOC: LAB 07:39
PROVIDERS: PCP Electrodiagnostic Medicine; Visit Provider Urology
DX: R79.89 Other specified abnormal findings of blood chemistry (principal)
CPT/HCPCS: 36415; 81003; 84403; 99213

== ENCOUNTER 2022-12-15 14:39 | Outpatient (CLI) | payer MEDICARE, OTHER, SELFPAY ==
[2022-12-15 16:37] LABS: Testosterone Total 430.3 ng/dL (193-740)
== END 2022-12-15 14:40 | disposition home or self-care (01) ==
PROVIDERS: PCP Electrodiagnostic Medicine; Visit Provider Urology
DX: R79.89 Other specified abnormal findings of blood chemistry (principal)
CPT/HCPCS: 36415; 84403

== ENCOUNTER 2023-01-04 09:41 | Outpatient (CLI) | payer MEDICARE, OTHER, SELFPAY ==
--- NOTE | 2023-01-04 10:03 | XRR_ITS ---
PROCEDURE INFORMATION: Exam: XR Abdomen Exam date and time: 01/04/2023 10:19 AM Age: 77 years old Clinical indication: Condition or disease; Kidney or ureter condition; Calculus (stone) in kidney; Additional info: Stones, naun bellamy 01/04/23 @ 9:30 am appt to follow TECHNIQUE: Imaging protocol: Radiologic exam of the abdomen. Views: Frontal supine view of the abdomen. 1 View. COMPARISON: CT abdomen pelvis w con* [id number] 03/07/2020 1:07 PM FINDINGS: Gastrointestinal tract: Nonspecific bowel gas pattern, with mild increased gas and stool in the colon. Bowel contents overlie the kidneys, limiting evaluation for underlying calcification or stone. Suggestion of a few pelvic phleboliths/vascular calcification. Intraperitoneal space: No indication of free air. Bones/joints: Degenerative bony changes. XR/XR KUB [id number] IMPRESSION: Nonspecific nonobstructive bowel gas pattern, with mild increased gas and stool in the colon and correlate clinically. Limited evaluation of the kidneys for calcification or stone due to overlying bowel contents.
--- NOTE | 2023-01-04 10:15 | US_ITS ---
WS: [id number] RENAL ULTRASOUND HISTORY: GROSS HEMATURIA COMPARISON: None available. TECHNIQUE: 2-D and color Doppler imaging of the kidney submitted. Right kidney: 10.9 cm x 4.6 cm x 5.3 cm. Normal echogenicity with no hydronephrosis or mass. Left kidney: 10.2 cm x 4.4 cm x 5.1 cm. Normal size kidney. Parapelvic cyst. Previously noted on a prior CT from 2019. No solid mass or hydro nephrosis. Aorta: Normal. Urinary Bladder: Normally distended urinary bladder. Prostate gland is mildly enlarged and heterogene ous measuring 4.7 x 3.3 x 4.1 cm. US/US renal BI* [id number] IMPRESSION: 1. No renal atrophy or hydronephrosis. 2. Prostate gland enlargement and heterogeneity.
== END 2023-01-04 09:42 | disposition home or self-care (01) ==
PROVIDERS: PCP Electrodiagnostic Medicine; Visit Provider Urology
DX: R31.9 Hematuria, unspecified (principal); N40.0 Benign prostatic hyperplasia without lower urinary tract symptoms; R79.89 Other specified abnormal findings of blood chemistry
CPT/HCPCS: 51798; 74018; 76770; 81003; 99213

== ENCOUNTER 2023-02-01 06:07 | Outpatient (CLI) | payer OTHER, SELFPAY ==
--- NOTE | 2023-02-01 | USCV_ITS ---
Segun Yuan Age: 77 Gender: M : 1945 Exam Date: 02/01/2023 06:44 Ordering Phys: Danielle Nunez MD Technologist: CT Exam [place] [facility] [place]: screening aaa HISTORY: Diameter (cm) AP x Transverse x Length Velocity (cm/s) Waveform Prox Aorta: 2.35 x 2.09 x 59.50 Mid Aorta: 1.96 x 1.71 x 64.50 Distal Aorta: 1.83 x 1.75 x 96.70 Right Iliac Prox: 1.07 x 1.07 x 98.30 Left Iliac Prox: 1.07 x 1.09 x 123.90 Stent Prox Landing x x Aneurysmal Sac Max x x Lt Lat Sac Dim Rt Lat Sac Dim Stent Dist Landing x x Right Iliac Stent x x Left Iliac Stent x x Right Renal Art Left Renal Art FINDINGS: Comparison: none available. No evidence of abdominal aortic or bilateral iliac aneurysm. Ectatic abdominal aorta with evidence of atherosclerotic plaque noted. There is evidence of atherosclerotic plaque no significan stenosis in the right common iliac artery. There is evidence of atherosclerotic plaque no significan stenosis in the left common iliac artery. CONCLUSIONS No evidence of abdominal aortic or bilateral iliac aneurysm. Dr. Kristin Sifuentes DO (Electronically Signed) Final Date: 01 February 2023 07:33 S
== END 2023-02-01 06:08 | disposition home or self-care (01) ==
LOC: RAD 06:09
PROVIDERS: PCP Electrodiagnostic Medicine; Visit Provider Family Medicine
DX: Z13.6 Encounter for screening for cardiovascular disorders (principal)
CPT/HCPCS: 76706

== ENCOUNTER → 2024-01-30 12:51 | Outpatient (BNVA) | payer MEDICARE, OTHER, SELFPAY | PROVIDERS: PCP Electrodiagnostic Medicine; Visit Provider Nurse Practitioner Family | DX: B00.1 Herpesviral vesicular dermatitis (principal); D22.5 Melanocytic nevi of trunk; L81.4 Other melanin hyperpigmentation; L82.1 Other seborrheic keratosis | CPT/HCPCS: 17000; 99214 ==

== ENCOUNTER → 2024-02-29 08:26 | Outpatient (BNVA) | payer MEDICARE, OTHER, SELFPAY | PROVIDERS: PCP Electrodiagnostic Medicine; Visit Provider Nurse Practitioner Family | DX: B00.1 Herpesviral vesicular dermatitis (principal); L82.1 Other seborrheic keratosis; L81.4 Other melanin hyperpigmentation; D22.5 Melanocytic nevi of trunk | CPT/HCPCS: 99213 ==

== ENCOUNTER → 2024-05-31 10:04 | Outpatient (BNVA) | payer MEDICARE, OTHER, SELFPAY | PROVIDERS: PCP Electrodiagnostic Medicine; Visit Provider Nurse Practitioner Family | DX: L57.0 Actinic keratosis (principal); D48.5 Neoplasm of uncertain behavior of skin; L81.4 Other melanin hyperpigmentation; L57.8 Other skin changes due to chronic exposure to nonionizing radiation; D22.5 Melanocytic nevi of trunk | CPT/HCPCS: 11102; 17000; 99213 ==

== ENCOUNTER → 2025-06-13 14:39 | Outpatient (BNVA) | payer MEDICARE, OTHER, SELFPAY | PROVIDERS: PCP Electrodiagnostic Medicine; Visit Provider Dermatology | DX: L81.4 Other melanin hyperpigmentation (principal); D22.5 Melanocytic nevi of trunk; L82.1 Other seborrheic keratosis; L73.8 Other specified follicular disorders; D48.5 Neoplasm of uncertain behavior of skin; L57.0 Actinic keratosis | CPT/HCPCS: 11102; 17000; 99213 ==